=== PATIENT | male | born 1960 ===

== ENCOUNTER 2020-11-16 12:15 | Inpatient (IN) | payer OTHER ==
[~2020-11-16] VITALS: Ht 170.2 cm; Wt 70.8 kg
[2020-11-20] MEDS ORDERED: TOPROL XL50 M1 PO (08:22)
[2020-11-20] MEDS ORDERED: FLECAINIDE ACET50 MG PO (08:23)
[2020-11-23] MEDS ORDERED: BISACODYL5 MG (08:11)
[2020-11-23] MEDS ORDERED: CLEARLAX119 GM (08:11)
[2020-11-23] MEDS ORDERED: ULTRACET PO (17:01)
== END 2020-11-23 17:52 | disposition home or self-care (01) | DRG 349 ==
LOC: O/R 11-22 05:25 → SURH 11-22 05:25
PROVIDERS: ADMIT Surgery; ATTEND Surgery
PROC: 0DBP7ZZ Excision of Rectum, Via Natural or Artificial Opening (ICD-10-PCS; principal; 2020-11-22 15:30)
DX: K62.1 Rectal polyp (principal); B18.2 Chronic viral hepatitis C; Z20.822 Contact with and (suspected) exposure to COVID-19